=== PATIENT | female | born 1960 | race Native Hawaiian/Other Pacific Islander ===

== ENCOUNTER 2020-07-27 16:11 | Emergency (ER) | payer OTHER ==
[~2020-07-27] VITALS: Ht 162.6 cm; Wt 80.7 kg
[2020-07-27 16:11] VITALS: BP 163/69; TEMP 98.3
[2020-07-27 16:59] LABS: PLATELET COUNT 72 K/uL (152-353)
[2020-07-27 17:10] LABS: POTASSIUM 2.8 mmol/L (3.6-5.2)
[2020-07-27] MEDS ORDERED: ABILIFY MYCITE5 MG PO (21:47)
[2020-07-27] MEDS ORDERED: TYLENOL325 MG PO (21:50)
[2020-07-27] MEDS ORDERED: ALBUTEROL0.083 % INH (22:10)
[2020-07-27] MEDS ORDERED: DOCU100C10 PO (22:11)
[2020-07-27] MEDS ORDERED: IRON325 MG (22:13)
[2020-07-27] MEDS ORDERED: NICOTINE PATCH TD (22:16)
[2020-07-27] MEDS ORDERED: NICOTINE GUM PO (22:18)
[2020-07-27] MEDS ORDERED: HYDR5TAB9 PO (22:20)
[2020-07-27] MEDS ORDERED: PARO20TA3 PO (22:24)
[2020-07-27] MEDS ORDERED: NYSTATIN/TRIAMC1 CRE EX (22:24)
[2020-07-27] MEDS ORDERED: PAXIL20 MG PO (22:26)
[2020-07-27] MEDS ORDERED: DIAZ5TAB20 PO (22:27)
[2020-07-27] MEDS ORDERED: CIPR500T PO (22:29)
[2020-08-03] MEDS ORDERED: CLON0.5T36 PO (08:31)
[2020-08-03] MEDS ORDERED: ARIPIPRAZOLE10 MG PO (08:31)
[2020-08-03] MEDS ORDERED: FOLI1TAB26 PO (08:31)
[2020-08-03] MEDS ORDERED: PARO20TA3 PO (08:31)
[2020-08-03] MEDS ORDERED: CHOL100034 PO (08:31)
[2020-08-08] MEDS ORDERED: CLON0.5T36 PO (12:07)
[2020-08-08] MEDS ORDERED: ACET-206 PO (12:07)
[2020-08-08] MEDS ORDERED: ASCO500T18 PO (12:07)
[2020-08-08] MEDS ORDERED: LEVAQUIN 500MG TAB PO (12:07)
[2020-08-08] MEDS ORDERED: DEXA4TAB2 PO (12:07)
[2020-08-08] MEDS ORDERED: PANTOPRAZOLE 40MG TA PO (12:07)
[2020-08-08] MEDS ORDERED: ONDA4TAB3 PO (12:07)
[2020-08-08] MEDS ORDERED: PULMICORT180 MCG/AC INH (12:07)
[2020-08-08] MEDS ORDERED: ACET650S18 RE (12:07)
[2020-08-08] MEDS ORDERED: DOCU100C10 PO (12:07)
[2020-08-08] MEDS ORDERED: ZINC220C4 PO (12:07)
[2020-08-08] MEDS ORDERED: ZIPR20IN IM (12:07)
[2020-08-08] MEDS ORDERED: AZIT250T3 PO (12:07)
[2020-08-08] MEDS ORDERED: FERROUS SULF325 MG PO (12:07)
[2020-08-08] MEDS ORDERED: HYDR5TAB9 PO (12:07)
[2020-08-08] MEDS ORDERED: IPRAAER INH (12:07)
== END 2020-07-27 18:56 | disposition still patient (30) ==
LOC: ED 16:11
PROVIDERS: Emergency Medicine Emergency Medical Services
DX: F32.89 Other specified depressive episodes (principal); R46.89 Other symptoms and signs involving appearance and behavior; Z11.59 Encounter for screening for other viral diseases; Z04.6 Encounter for general psychiatric examination, requested by authority
CPT/HCPCS: 80053; 85027; 87635; 93005; 99283; U0003